=== PATIENT | male | born 1965 | race Two or more races ===

== ENCOUNTER 2022-07-09 12:25 | Inpatient (IN) | payer OTHER ==
[2022-07-09 13:42] VITALS: BMI 27.3
[2022-07-09] MEDS ORDERED: NALOXONE HCL 0.4 MG/ML VIAL IM PRN (15:20)
[2022-07-09] MEDS ORDERED: MAGNESIUM HYDROX 2400MG/30ML ORAL SUSPENSION 30 ML CUP PO PRN (15:20)
[2022-07-09] MEDS ORDERED: ACETAMINOPHEN 325 MG TABLET (FP) PO PRN (15:20)
[2022-07-09] MEDS ORDERED: DICYCLOMINE HCL 10 MG CAPSULE PO PRN (15:20)
[2022-07-09] MEDS ORDERED: BENZOCAINE/MENTHOL (CHLORASEPTIC ) LOZENGE MM PRN (15:20)
[2022-07-09] MEDS ORDERED: METHOCARBAMOL 500 MG TABLET PO PRN (15:20)
[2022-07-09] MEDS ORDERED: MAG HYDROX/AL HYDROX/SIMETH 30 ML UNIT-DOSE CUP PO PRN (15:20)
[2022-07-09] MEDS ORDERED: guaiFENesin 600 MG TABLET.ER (FP) PO PRN (15:20)
[2022-07-09] MEDS ORDERED: NICOTINE 21 MG/24 HOURS TOPICAL PATCH TD PRN (15:20)
[2022-07-09] MEDS ORDERED: diazePAM 5 MG TABLET PO PRN (15:20)
[2022-07-09] MEDS ORDERED: NALOXONE HCL (KLOXXADO) 8 MG SPRAY NS PRN (15:20)
[2022-07-09] MEDS ORDERED: hydrOXYzine PAMOATE 25 MG CAPSULE (FP) PO PRN (15:20)
[2022-07-09] MEDS ORDERED: IBUPROFEN 400 MG TABLET (FP) PO PRN (15:20)
[2022-07-09] MEDS ORDERED: IBUPROFEN 600 MG TABLET (FP) PO PRN (15:20)
[2022-07-09] MEDS ORDERED: BENZONATATE 200 MG CAPSULE PO PRN (15:20)
[2022-07-09] MEDS ORDERED: BISMUTH SUBSALICYLATE 262 MG/15 ML BTL PO PRN (15:20)
[2022-07-09] MEDS ORDERED: NICOTINE POLACRILEX 4 MG GUM BUC PRN (15:20)
[2022-07-09] MEDS ORDERED: POLYETHYLENE GLYCOL (HEALTHYLAX) 3350 17 GM PACKET PO PRN (15:20)
[2022-07-09] MEDS ORDERED: cloNIDine HCL 0.1 MG TABLET PO PRN (15:20)
[2022-07-09] MEDS ORDERED: LOPERAMIDE HCL 2 MG CAPSULE PO PRN (15:20)
[2022-07-09] MEDS ORDERED: ONDANSETRON *ODT* 4 MG TABLET SL PRN (15:20)
[2022-07-09] MEDS ORDERED: diazePAM 5 MG TABLET ONE (16:58)
[2022-07-09] MEDS ORDERED: methaDONE HCL 10 MG TABLET (FOR DETOX USE ONLY) ONE (16:59)
[2022-07-09] MEDS ORDERED: methaDONE HCL 10 MG TABLET (FOR DETOX USE ONLY) PO ONE (17:00)
[2022-07-09] MEDS: diazePAM 5 MG TABLET PO SCH ×2 (17:07→22:13)
[2022-07-09] MEDS: THIAMINE HCL 100 MG TABLET (FP) PO SCH (22:13)
[2022-07-09] MEDS: MELATONIN 5 MG TABLETS PO SCH (22:13)
[2022-07-10] MEDS: diazePAM 5 MG TABLET PO SCH ×4 (05:17→22:21)
[2022-07-10] MEDS ORDERED: PRENATAL VITAMINS W/ FOLIC ACID TABLET (FP) PO SCH (10:00)
[2022-07-10 10:48] LABS: HEMATOCRIT 44.9 % (35.4-49); HEMOGLOBIN 15.3 GM/dL (11.7-16.9); MCH 29.9 pg (25.7-33.7); MCHC 34.1 g/dl (32.0-35.9); MEAN CELL VOLUME 87.7 fl (80-96); MEAN PLT VOLUME 8.9 fl (7.5-11.1); PLATELET COUNT 183 10^3/uL (134-434); RBC 5.13 M/mm3 (4.00-5.60); RDW 13.5 % (11.9-15.9); WHITE BLOOD COUNT 5.1 K/mm3 (4.0-10.0)
[2022-07-10 11:41] LABS: CALCIUM 9.4 mg/dL (8.5-10.1)
[2022-07-10 11:42] LABS: ALBUMIN 3.2 g/dl (3.4-5.0); BLOOD UREA NITROGEN 12.1 mg/dL (7-18)
[2022-07-10 11:45] LABS: CREATININE 0.7 mg/dL (0.55-1.3)
[2022-07-10 11:46] LABS: BILIRUBIN,TOTAL 0.4 mg/dL (0.2-1); TOT PROT 6.7 g/dl (6.4-8.2)
[2022-07-10] MEDS: MELATONIN 5 MG TABLETS PO SCH (22:21)
[2022-07-10] MEDS: THIAMINE HCL 100 MG TABLET (FP) PO SCH (22:21)
[2022-07-11] MEDS ORDERED: diazePAM 5 MG TABLET PO SCH (06:00)
[2022-07-11 06:03] VITALS: PULSE 83
[2022-07-11 09:10] VITALS: BP 155/94; RESP 18; TEMP 98.4
[2022-07-11] MEDS ORDERED: methaDONE HCL 10 MG TABLET (FOR DETOX USE ONLY) PO ONE (10:00)
[2022-07-12] MEDS ORDERED: diazePAM 5 MG TABLET PO SCH (06:00)
[2022-07-13] MEDS ORDERED: diazePAM 5 MG TABLET PO ONE (06:00)
[2022-07-13] MEDS ORDERED: methaDONE HCL 10 MG TABLET (FOR DETOX USE ONLY) PO ONE (10:00)
== END 2022-07-11 09:48 | disposition left against medical advice (07) | DRG 894 ==
LOC: YASAS 12:25 → Y3N 16:53
PROVIDERS: ADMIT Allergy & Immunology; ATTEND Surgery
PROC: HZ2ZZZZ Detoxification Services for Substance Abuse Treatment (ICD-10-PCS; principal; 2022-07-09)
DX: F11.23 Opioid dependence with withdrawal (principal); F13.20 Sedative, hypnotic or anxiolytic dependence, uncomplicated; F10.230 Alcohol dependence with withdrawal, uncomplicated; F17.210 Nicotine dependence, cigarettes, uncomplicated; F31.9 Bipolar disorder, unspecified; F20.9 Schizophrenia, unspecified; B18.2 Chronic viral hepatitis C; Z86.11 Personal history of tuberculosis
CPT/HCPCS: 36415; 71045-TC-FY; 80053; 85027; 86780; 93005; 93010; C9803-CS; U0003; U0005

== ENCOUNTER 2023-03-16 02:41 | Inpatient (IN) | payer OTHER ==
[2023-03-16 03:25] VITALS: BMI 24.9
[2023-03-16] MEDS ORDERED: DICYCLOMINE HCL 10 MG CAPSULE PO PRN (03:42)
[2023-03-16] MEDS ORDERED: ACETAMINOPHEN 325 MG TABLET (FP) PO PRN (03:42)
[2023-03-16] MEDS ORDERED: NALOXONE HCL 0.4 MG/ML VIAL IM PRN (03:42)
[2023-03-16] MEDS ORDERED: MAGNESIUM HYDROX 2400MG/30ML ORAL SUSPENSION 30 ML CUP PO PRN (03:42)
[2023-03-16] MEDS ORDERED: guaiFENesin 600 MG TABLET.ER (FP) PO PRN (03:42)
[2023-03-16] MEDS ORDERED: ONDANSETRON *ODT* 4 MG TABLET SL PRN (03:42)
[2023-03-16] MEDS ORDERED: IBUPROFEN 400 MG TABLET (FP) PO PRN (03:42)
[2023-03-16] MEDS ORDERED: BENZONATATE 200 MG CAPSULE PO PRN (03:42)
[2023-03-16] MEDS ORDERED: NICOTINE POLACRILEX 2 MG GUM BUC PRN (03:42)
[2023-03-16] MEDS ORDERED: POLYETHYLENE GLYCOL (HEALTHYLAX) 3350 17 GM PACKET PO PRN (03:42)
[2023-03-16] MEDS ORDERED: MAG HYDROX/AL HYDROX/SIMETH 30 ML UNIT-DOSE CUP PO PRN (03:42)
[2023-03-16] MEDS ORDERED: IBUPROFEN 600 MG TABLET (FP) PO PRN (03:42)
[2023-03-16] MEDS ORDERED: BISMUTH SUBSALICYLATE 524 MG/30 ML PO PRN (03:42)
[2023-03-16] MEDS ORDERED: NALOXONE HCL (KLOXXADO) 8 MG SPRAY NS PRN (03:42)
[2023-03-16] MEDS ORDERED: LOPERAMIDE HCL 2 MG CAPSULE PO PRN (03:42)
[2023-03-16] MEDS ORDERED: BENZOCAINE/MENTHOL (CHLORASEPTIC ) LOZENGE MM PRN (03:42)
[2023-03-16] MEDS: PRENATAL VITAMINS W/ FOLIC ACID TABLET (FP) PO SCH (10:27)
[2023-03-16] MEDS: diazePAM 5 MG TABLET PO SCH ×2 (11:38→21:38)
[2023-03-16] MEDS ORDERED: methaDONE HCL 10 MG TABLET (FOR DETOX USE ONLY) PO ONE (11:45)
[2023-03-16] MEDS: hydrOXYzine PAMOATE 25 MG CAPSULE (FP) PO PRN (21:38)
[2023-03-16] MEDS: THIAMINE HCL 100 MG TABLET (FP) PO SCH (21:38)
[2023-03-16] MEDS: MELATONIN 5 MG TABLETS PO SCH (21:38)
[2023-03-16] MEDS: METHOCARBAMOL 500 MG TABLET PO PRN (21:38)
[2023-03-16] MEDS: P-EPHED 60MG/TRIPROLIDI 2.5MG TABLET PO PRN (21:40)
[2023-03-17] MEDS: PRENATAL VITAMINS W/ FOLIC ACID TABLET (FP) PO SCH (09:43)
[2023-03-17] MEDS: diazePAM 5 MG TABLET PO SCH (09:45)
[2023-03-17] MEDS: METHOCARBAMOL 500 MG TABLET PO PRN ×2 (09:47→21:38)
[2023-03-17] MEDS: P-EPHED 60MG/TRIPROLIDI 2.5MG TABLET PO PRN (18:58)
[2023-03-17] MEDS: THIAMINE HCL 100 MG TABLET (FP) PO SCH (21:38)
[2023-03-17] MEDS: cloNIDine HCL 0.1 MG TABLET PO PRN (21:38)
[2023-03-17] MEDS: MELATONIN 5 MG TABLETS PO SCH (21:38)
[2023-03-17] MEDS: hydrOXYzine PAMOATE 25 MG CAPSULE (FP) PO PRN (21:38)
[2023-03-18] MEDS: cloNIDine HCL 0.1 MG TABLET PO PRN ×2 (05:55→22:08)
[2023-03-18] MEDS: METHOCARBAMOL 500 MG TABLET PO PRN (09:52)
[2023-03-18] MEDS: diazePAM 5 MG TABLET PO PRN ×2 (09:52→22:09)
[2023-03-18] MEDS: PRENATAL VITAMINS W/ FOLIC ACID TABLET (FP) PO SCH (09:52)
[2023-03-18] MEDS ORDERED: methaDONE HCL 10 MG TABLET (FOR DETOX USE ONLY) PO ONE (10:00)
[2023-03-18] MEDS: MELATONIN 5 MG TABLETS PO SCH (22:09)
[2023-03-18] MEDS: THIAMINE HCL 100 MG TABLET (FP) PO SCH (22:09)
[2023-03-19 09:09] VITALS: BP 158/98; PULSE 89; RESP 17; TEMP 96.9
[2023-03-19] MEDS: PRENATAL VITAMINS W/ FOLIC ACID TABLET (FP) PO SCH (10:04)
[2023-03-19] MEDS: diazePAM 5 MG TABLET PO PRN (10:06)
[2023-03-19 12:31] LABS: HEMATOCRIT 50.8 % (35.4-49); HEMOGLOBIN 16.8 GM/dL (11.7-16.9); MCH 29.7 pg (25.7-33.7); MCHC 33.1 g/dl (32.0-35.9); MEAN CELL VOLUME 89.6 fl (80-96); MEAN PLT VOLUME 8.2 fl (7.5-11.1); PLATELET COUNT 279 10^3/uL (134-434); RBC 5.66 M/mm3 (4.00-5.60); RDW 13.5 % (11.9-15.9); WHITE BLOOD COUNT 7.4 K/mm3 (4.0-10.0)
[2023-03-19 21:44] LABS: POTASSIUM 4.6 mmol/L (3.5-5.1)
[2023-03-19 21:47] LABS: ALBUMIN 3.2 g/dl (3.4-5.0); BLOOD UREA NITROGEN 13.3 mg/dL (7-18)
[2023-03-19 21:50] LABS: CREATININE 0.7 mg/dL (0.55-1.3)
[2023-03-19 21:52] LABS: BILIRUBIN,TOTAL 0.2 mg/dL (0.2-1); TOT PROT 7.3 g/dl (6.4-8.2)
[2023-03-20] MEDS ORDERED: methaDONE HCL 10 MG TABLET (FOR DETOX USE ONLY) PO ONE (10:00)
== END 2023-03-19 11:16 | disposition left against medical advice (07) | DRG 894 ==
LOC: YASAS 02:41 → Y3N 04:18
PROVIDERS: ADMIT Allergy & Immunology; ATTEND Surgery
PROC: HZ2ZZZZ Detoxification Services for Substance Abuse Treatment (ICD-10-PCS; principal; 2023-03-16)
DX: F11.23 Opioid dependence with withdrawal (principal); F14.20 Cocaine dependence, uncomplicated; F13.20 Sedative, hypnotic or anxiolytic dependence, uncomplicated; F17.210 Nicotine dependence, cigarettes, uncomplicated
CPT/HCPCS: 36415; 80053; 80307; 85027; 87635; 87811